=== PATIENT | male | born 1980 | race Two or more races ===

== ENCOUNTER 2018-01-24 14:56 | Emergency (ER) | payer SELFPAY ==
[~2018-01-24] VITALS: Ht 165.1 cm; Wt 87.5 kg
[2018-01-24 15:09] VITALS: BP 113/70
[2018-01-24] MEDS ORDERED: oxyCODONE HCL/Acetaminophen 5/325mg ORAL ONE (15:45)
--- NOTE | 2018-01-24 15:56 | Emergency Room Report ---
History of Present Illness General Chief Complaint: Pain Source: Patient Present Illness HPI 37 YO Male presents to the ED c/o 06/23 in severity localized Left knee pain, swelling. S/p meniscal injury 2 years ago. no Trauma or fall. Patient denies erythema, increased temperature palpation or open wounds or scabs. Patient reports that he has been doing a lot of walking at work otherwise no recognizable travel. Patient denies bruises, rash. Patient reports previous surgery 2 years ago performed on the knee. Pain exacerbated with walking or palpation. pt. reports most relief with leg fully extended. Denies hx of gout. Denies numbness tingling or loss of sensation or gross motor movements of the extremities, incontinence of bowel or bladder. Denies CP, Palpitations, LOC, AMS , dizziness, Changes in Vision, Sensation, paresthesias, or a sudden severe headache. Allergies: Coded Allergies: No Known Allergies (Unverified , 01/24/18) Patient History Past Medical History: see triage record Past Surgical History: none Pertinent Family History: none Reviewed Nursing Documentation: PMH: Agreed, PSxH: Agreed Review of Systems All Other Systems: negative except mentioned in HPI Physical Exam Vital Signs Date Time Temp Pulse Resp B/P (MAP) Pulse Ox O2 Delivery O2 Flow Rate FiO2 01/24/18 15:02 99.3 96 17 113/70 97 Room Air 99.3 Sp02 EP Interpretation: reviewed, normal General Appearance: no apparent distress, alert, GCS 15, non-toxic Head: normocephalic, atraumatic ENT: hearing grossly normal, normal voice Neck: full range of motion Respiratory: lungs clear, normal breath sounds, speaking full sentences Cardiovascular #1: regular rate, rhythm, no edema, normal capillary refill Musculoskeletal: back normal, gait/station normal, normal range of motion - with pain, non-tender, tender - Medial left knee, negative ant. or post. drawer signs, no erythema, increased temperature to palpation or increased laxity, FROM with pain. swelling noted medially. no obvious deformity/dislocation. Neurologic: alert, oriented x3, responsive, motor strength/tone normal, sensory intact, normal gait - compensatory, speech normal, grossly normal Psychiatric: judgement/insight normal Skin: normal color, no rash, warm/dry, well hydrated, other - no erythema or increased temperature to palpation. Some swelling noted medially Medical Decision Making PA Attestation Dr. elmore is my supervising Physician whom patient management has been discussed with. Diagnostic Impression: Primary Impression: Knee effusion, left ER Course 37 YO Male presents to the ED c/o 06/23 in severity localized Left knee pain, swelling. S/p meniscal injury 2 years ago. no Trauma or fall. Patient denies erythema, increased temperature palpation or open wounds or scabs. Patient reports that he has been doing a lot of walking at work otherwise no recognizable travel. Patient denies bruises, rash. Patient reports previous surgery 2 years ago performed on the knee. Pain exacerbated with walking or palpation. pt. reports most relief with leg fully extended. Denies hx of gout. Denies numbness tingling or loss of sensation or gross motor movements of the extremities, incontinence of bowel or bladder. Denies CP, Palpitations, LOC, AMS , dizziness, Changes in Vision, Sensation, paresthesias, or a sudden severe headache. Denies numbness tingling or loss of sensation or gross motor movements of the extremities, incontinence of bowel or bladder. Denies CP, Palpitations, LOC, AMS , dizziness, Changes in Vision, Sensation, paresthesias, or a sudden severe headache. Ddx considered but are not limited to Fracture, dislocation, contusion, Sprain/ Strain/Spasm, gout, septic joint. Vital signs: are WNL, pt. is afebrile H&PE are most consistent with musculoskeletal injury will perform imaging to r/ o fractures/dislocations. ORDERS: - X-ray Left Knee 3 views - negative for fx, Dislocation, or significant soft tissue injury, per preliminary read in ED, and signed by DEMETRA Marshall , my supervising physician has reviewed, and agrees with my interpretation. ED INTERVENTIONS: - Pain medication PO Ken wrap applied by electroencephalograph technician. Pt. remains neurovascularly intact. -Patient is provided with crutches and instructed on their use DISCHARGE: At this time pt. is stable for d/c to home. Will provide printed patient care instructions, and any necessary prescriptions. Care plan and follow up instructions have been discussed with the patient prior to discharge. Other X-Ray Diagnostic Results Other X-Ray Diagnostic Results : X-Ray ordered: Left knee # of Views/Limited Vs Complete: 3 View Indication: Swelling EP Interpretation: Yes PA Xray: Interpretation reviewed, by supervising MD, and agrees with findings. Interpretation: no dislocation, no soft tissue swelling, no fractures Impression: No acute disease Electronically Signed by: Lyubov Marshall PA-C Last Vital Signs Date Time Temp Pulse Resp B/P (MAP) Pulse Ox O2 Delivery O2 Flow Rate FiO2 01/24/18 15:48 99.3 01/24/18 15:09 96 17 113/70 97 Room Air Disposition: HOME, SELF-CARE Condition: Stable Scripts Naproxen* (NAPROXEN*) 500 Mg Tablet 500 MG ORAL TWICE A DAY for 10 Days, #20 TAB Prov: Lyubov Marshall 01/24/18 Departure Forms: Return to Work Return to Work Date: Jan 27, 2018 Work Restrictions: No Heavy Lifting, No Prolonged Standing Other Restrictions: light duty, no prolonged walking. x 1 week. Return to Full Activity: Feb 03, 2018 Patient Instructions: Knee Effusion Additional Instructions: Take medications as directed. Follow up with a [employer] Professor in 3-5 days, even if your symptoms have resolved. --Please review list of primary care clinics, if you do not already have a primary care provider who can give you a referral. Return sooner to ED if new symptoms occur, or current symptoms become worse. - Please note that this Emergency Department Report was dictated using [employer] strategist technology software, occasionally this can lead to erroneous entry secondary to interpretation by the dictation equipment. Lyubov Marshall Jan 24, 2018 15:56
[2018-01-24] MEDS ORDERED: NAPROXEN500 M2 ORAL (15:57)
--- NOTE | 2018-01-24 16:20 | Diagnostic Imaging Report ---
Indication: Reason For Exam: PAIN Technique: 3 views of the left knee Comparison: None Findings: There is a small suprapatellar effusion. Small patellar osteophytes are demonstrated. No acute fractures. No dislocations. Joint spaces are preserved. Impression: Evidence of joint effusion No acute bony trauma Minimal early degenerative changes
[2018-01-24 16:25] VITALS: BP 113/70
== END 2018-01-24 16:20 | disposition home or self-care (01) ==
LOC: EMR 15:35
DX: M25.462 Effusion, left knee (principal); M25.562 Pain in left knee
CPT/HCPCS: 99283